=== PATIENT | male | born 1995 | race Caucasian/White ===

== ENCOUNTER → 2018-05-28 16:36 | Outpatient (CLI) | payer OTHER, SELFPAY ==
--- NOTE | 2018-05-28 16:43 | XR_ITS ---
EXAM: XR lumbar spine min 4V HISTORY: ITS.REASON: MID TO LOW BACK PAIN ORDERING PHYSICIAN: Elizabeth Kirby PATIENT AGE: 22 years COMPARISON: None FINDINGS: Normal alignment. No fracture or dislocation. No lytic or blastic change. No significant degenerative change. The disc spaces are preserved. There is no pars defect noted. IMPRESSION: No acute finding
--- NOTE | 2018-05-28 16:44 | XR_ITS ---
EXAM: XR thoracic spine 2V HISTORY: ITS.REASON: MID TO LOW BACK PAIN Comparison: None FINDINGS: Normal alignment. No fracture or dislocation. No lytic or blastic change. No significant degenerative change. The disc spaces are preserved. IMPRESSION: No acute finding
== END ==
PROVIDERS: PCP Nurse Practitioner Family; Visit Provider Nurse Practitioner Family
DX: M54.6 Pain in thoracic spine (principal); M54.5 Low back pain
CPT/HCPCS: 72070; 72110

== ENCOUNTER → 2020-06-10 15:14 | Outpatient (CLI) | payer OTHER, SELFPAY | PROVIDERS: Visit Provider Internal Medicine Adolescent Medicine | DX: R35.0 Frequency of micturition (principal) | CPT/HCPCS: 87086 ==

== ENCOUNTER → 2020-07-06 08:47 | Outpatient (CLI) | payer OTHER, SELFPAY ==
--- NOTE | 2020-07-06 08:50 | CT_ITS ---
PROCEDURE: CT ABDOMEN PELVIS W CON CLINICAL INDICATION: INGUINAL HERNIA OF L SIDE W/O OBSTRUCTION OR GANGRENE Left-sided inguinal pain and swelling COMPARISON: No exams were available for comparison TECHNIQUE: IV Contrast: 75ML OPTIRAY 350 Oral Contrast None Axial images obtained with sagittal and coronal reformats. All CT scans at the facility use one or more dose reduction, viz: automated exposure control, ma/kV adjustment per patient size (including targeted exams where dose is matched to indication, i.e. head), or iterative reconstruction technique. FINDINGS: LOWER THORAX: There is bilateral gynecomastia. ABDOMEN & PELVIS: The liver, gallbladder, spleen, adrenal glands, pancreas, and kidneys have an unremarkable appearance. No evidence of appendicitis. No intestinal obstruction or free air. There is a small left inguinal hernia which contains fat. This does not extend very far into the inguinal canal below the level of the symphysis pubis but is only in the superior aspect of the inguinal canal. There is some minimal stranding of the fat in this area which is nonspecific and could be due to some underlying inflammation. There are few small nodes in the inguinal region on both sides. No dominant adenopathy is evident. No acute bony findings. A small sclerotic focus is present in the proximal aspect of the right femur and may be due to small bone island.. IMPRESSION: 1. No acute abdominal or pelvic findings. 2. Small left inguinal hernia containing fat with some minimal stranding of the fat in the inguinal area which could be due to prior or current inflammation. 3. There are few small bilateral inguinal lymph nodes without dominant adenopathy. Dictated by: Kwasi Godwin MD 07/07/2020 11:48 Kwasi Godwin MD in [place] 07/07/2020 11:48
== END ==
PROVIDERS: PCP Internal Medicine Adolescent Medicine; Visit Provider Nurse Practitioner Family
DX: R10.32 Left lower quadrant pain (principal); K40.90 Unilateral inguinal hernia, without obstruction or gangrene, not specified as recurrent
CPT/HCPCS: 74177; Q9967

== ENCOUNTER → 2020-09-16 15:35 | Outpatient (CLI) | payer OTHER, SELFPAY ==
[2020-09-16 15:37] LABS: Microscopic, Urine URINE MICROSCOPIC (MICROSCOPIC)
[2020-09-16 16:23] LABS: Basophils # 0.1 K/mm3 (0-0.2); Basophils % 0.8 % (0.1-2.0); Eosinophils # 0.1 K/mm3 (0.0-0.4); Eosinophils % 0.7 % (0.1-12.0); Hematocrit 45.9 % (42.0-52.0); Hemoglobin 15.1 g/dL (14.1-18.0); Lymphocytes # 2.9 K/mm3 (0.7-4.5); Lymphocytes % 36.8 % (10-50); Mean Corpuscular HGB Conc 32.9 g/dL (31.8-35.4); Mean Corpuscular Hemoglobin 30.2 pg (27.0-31.2); Mean Corpuscular Volume 91.7 fl (80-94); Mean Platelet Volume 7.7 fl (7.4-10.4); Monocytes # 0.4 K/mm3 (0.1-1.0); Monocytes % 4.5 % (1.7-9.3); Neutrophils # 4.5 K/mm3 (1.8-7.8); Neutrophils % 57.2 % (37.0-80.0); Platelet Count 250 K/mm3 (142-424); Red Blood Count 5.01 M/mm3 (4.60-6.20); Red Cell Distribution Width 12.5 % (11.5-17.5); White Blood Count 7.8 K/mm3 (4.8-10.8)
[2020-09-16 16:35] LABS: Appearance,Urine CLEAR (Clear); Bilirubin,Urine Negative (Negative); Blood, Urine Negative (Negative); Color,Urine YELLOW (Yellow); Glucose,Urine (UA) Negative (Negative); Ketones,Urine Negative (Negative); Leukocyte Esterase,Urine Negative (Negative); Nitrate,Urine Negative (Negative); PH,Urine 7.5 (5.0-8.5); Protein,Urine Negative (Negative)
[2020-09-16 17:06] LABS: WBC,Urine Occasional #/hpf (0-3)
[2020-09-16 18:05] LABS: Anion Gap 13.3 mEq/L (5-15); Blood Urea Nitrogen 20 mg/dl (9-20); Calcium 9.5 mg/dl (8.4-10.2); Carbon Dioxide 29 mmol/L (22.0-30.0); Chloride 102 mmol/L (98-107); Estimated Glomerular Filt Rate 92 ml/min (>60); GFR (African American) 111 ML/MIN (>60); Glucose 71 mg/dl (74-100); Potassium 4.3 mmoL/L (3.5-5.1); Sodium 140 mmol/L (136-145)
[2020-09-16 20:05] LABS: Coronavirus 19 IgG Antibody Negative (Negative); Coronavirus 19 IgM Antibody Negative (Negative)
== END ==
PROVIDERS: Visit Provider Surgery
DX: Z01.818 Encounter for other preprocedural examination (principal); K40.90 Unilateral inguinal hernia, without obstruction or gangrene, not specified as recurrent
CPT/HCPCS: 36415; 80048; 81001; 85025; 86328

== ENCOUNTER 2020-09-18 06:14 | Day surgery (SDC) | payer OTHER, SELFPAY ==
[2020-09-15 11:15] VITALS: BMI 24.3
[2020-09-18] VITALS (13 sets, daily range): BP systolic 118–144; BP diastolic 62–84; PULSE 82–108; RESP 13–18; TEMP 36.2–43; O2SAT 96–100
--- NOTE | 2020-09-18 07:33 | P.PN_ITS ---
[facility] Anesthesia Checklist - Patient Identification Patient Identification: Arm Band - Structural Data Admitted From: Home Planned Operative Procedure/s: Open Left Inguinal Hernia Repair Consent for Planned Operative Procedure(s) Verified: Yes Verified Documents: Surgical Consent, History and Physical - NPO Status Verified Time NPO: 00:00 - Additional verifications Anesthesia Reactions: No Hx Blood Transfusions: No Blood Transfusion Reaction: No - Airway Assessment C-Spine Mobility Assessed: Yes (mp2) TMJ Mobility Assessed: Yes Dentition: Good Dentition - Neurological Assessment Level of Consciousness: Awake, Alert - Anesthesia Plan Anesthesia Risk discussed: Yes Anesthesia Plan: Verified ASA Class: I Anesthesia Type: General [facility] History I have reviewed the patient's past medical history: Yes Medical History: Denies:: Cancer, Diabetes Mellitus Type 1, Diabetes Mellitus Type 2, Internal Pacemaker, MRSA, Seizures *Have you ever received a pneumonia vaccine?: No *Have you received a flu vaccine this season?: No Other Medical History: Denies: Blood Transfusion Reaction Anesthesia experience/problems:: nac Laterality Cases: Left: Arthroscopy Knee Other Surgeries: No: Pacemaker Amputation: No Fractures: No - *Social History Last grade of school completed: Some college Smoking Status: Current some day smoker Tobacco Type: cigarettes # Packs/Day (cigarettes): 1 Alcohol Intake: current Alcohol Intake Frequency:: a few times a week Substance Use Type: denies use *Occupational Status:: employed Housing: house Household Members: spouse *Travel in the last 8 weeks: None Family Hx:: No significant family history
[2020-09-18 07:59] LABS: Microscopic,Cath URINE MICROSCOPIC (MICROSCOPIC)
[2020-09-18 08:00] LABS: Appearance,Urine/Cath CLEAR (Clear); Bilirubin,Cath Negative (Negative); Blood, Urine/Cath Negative (Negative); Color,Urine/Cath YELLOW (Yellow); Glucose,Urine/Cath (UA) Negative (Negative); Ketones,Urine/Cath Negative (Negative); Leukocyte Esterase,Cath Negative (Negative); Nitrate,Cath Negative (Negative); Protein,Urine/Cath Negative (Negative); Specific Gravity, Urine/Cath >= 1.030 (1.005-1.030)
--- NOTE | 2020-09-18 08:28 | HMH.OPNOTE ---
Date of procedure: 09/18/20 Pre-op Diagnosis:: Left inguinal hernia Post-op Diagnosis:: Same Procedure performed:: Open left inguinal hernia repair Surgeon:: Jaguar Leavitt MD Insurance Specialist(s):: [employer] APPRENTICE:: Burton Baron Anesthesia: LMA Estimated blood loss (mL): 15 Operative findings:: Fairly large indirect defect Small direct defect Operative note:: After informed consent was obtained the patient was taken to the operating room and placed in the supine position. General anesthesia was induced and his abdomen/groin/scrotum was prepped and draped in a sterile fashion. After infiltration with local anesthetic an oblique left groin incision was made. A combination of sharp dissection with scalpel and electrocautery was utilized to transect through Lesli's fascia to the level of the external aponeurosis. The external aponeurosis was sharply opened to the level of the external ring. The contents of the canal were carefully elevated. A cord lipoma was resected with a combination of sharp dissection, blunt dissection, and electrocautery. Evaluation did reveal a small to moderate direct defect and a fairly large indirect defect. The hernia sac was carefully elevated. The hernia sac was very thin. Careful dissection with Metzenbaum scissors, electrocautery, and blunt dissection was utilized to carefully separate the skin-walled sac from surrounding tissue. The sac was then inverted and placement of an extra-large PerFix plug was completed. The plug was secured with interrupted 0 Ethibond. The overlay PerFix mesh was then secured to the shelving edge inferiorly and fascial margin superiorly with interrupted Ethibond. The external aponeurosis was reapproximated with a running Vicryl. Lesli's fascia was reapproximated in a similar manner. Skin was closed with 4-0 Monocryl in a running subcuticular fashion. Sterile dressings were applied. Patient was transferred to recovery in stable condition after removal of his laryngeal mask airway. Condition: stable Disposition: PACU Specimens:: None Complications:: No immediate
[2020-09-18 08:33] LABS: Squamous Epithelial Ur./Cath Occasional #/hpf (0-5); WBC,Urine/Cath Occasional #/hpf (0-3)
[2020-09-18 08:34] LABS: Bacteria,Urine/Cath TRACE /lpf
--- NOTE | 2020-09-18 08:36 | P.PN_ITS ---
[facility] Anesthesia Record Part I Intake, IV Amount: 1,300 Estimated blood loss (mL): 10 Urine output (mL): 100 Blood Pressure: 144/84 SaO2: 98 Pulse Rate: 97 Respiratory Rate: 16 Temperature: 97.6 F Patient is:: Drowsy, Stable Stable to PACU at:: 08:30
--- NOTE | 2020-09-18 18:10 | P.PN_ITS ---
[facility] Anesthesia Record Part II Discharge Time: 09:11 Destination: Surgical Day Care (OP Surgery) PACU nurse assessment reviewed?: Yes Patient Condition:: Good Anesthesia Complications:: None Swallowing reflex intact?: Yes Cyanosis?: No Blood Pressure: 133/75 Pulse Rate: 108 Temperature: 97.5 F Mental Status: Alert & Oriented Pain level:: 5 Nausea and/or vomitting:: None Intake, IV Amount: 0
== END 2020-09-18 09:44 | disposition home or self-care (01) ==
LOC: OR 06:16
PROVIDERS: PCP Internal Medicine Adolescent Medicine; Visit Provider Surgery
PROC: (CPT 49505; principal; 2020-09-18 07:30)
DX: K40.90 Unilateral inguinal hernia, without obstruction or gangrene, not specified as recurrent (principal)
CPT/HCPCS: 49505; 81001; 96374; J2405; J2710

== ENCOUNTER 2021-04-17 03:01 | Emergency (ER) | payer OTHER, SELFPAY ==
[2021-04-17 03:18] VITALS: RESP 15; O2SAT 98; BMI 23.8
--- NOTE | 2021-04-17 03:31 | CT_ITS ---
PROCEDURE INFORMATION: Exam: CT Abdomen And Pelvis With Contrast Exam date and time: 04/17/2021 3:31 AM Age: 25 years old Clinical indication: Nausea and vomiting and other: Diarrhea; Prior surgery; Surgery date: 6+ months; Patient HX: N/v/d since 2229, HX of hernia SX; Additional info: Vomiting and nausea, diarhhea since 2229 TECHNIQUE: Imaging protocol: Computed tomography of the abdomen and pelvis with contrast. Radiation optimization: All CT scans at this facility use at least one of these dose optimization techniques: automated exposure control; mA and/or kV adjustment per patient size (includes targeted exams where dose is matched to clinical indication); or iterative reconstruction. Contrast material: ISOVUE; Contrast volume: 75 ml; Contrast route: IV; COMPARISON: CT ABDOMEN PELVIS W CON 07/06/2020 8:51 AM FINDINGS: Liver: Normal. No mass. Gallbladder and bile ducts: Normal. No calcified stones. No ductal dilation. Pancreas: Normal. No ductal dilation. Spleen: Normal. No splenomegaly. Adrenal glands: Normal. No mass. Kidneys and ureters: Normal. No hydronephrosis. Stomach and bowel: Unremarkable. No obstruction. No mucosal thickening. Appendix: No evidence of appendicitis. Intraperitoneal space: Unremarkable. No free air. No significant fluid collection. Vasculature: Unremarkable. No abdominal aortic aneurysm. Lymph nodes: Unremarkable. No enlarged lymph nodes. Urinary bladder: Unremarkable as visualized. Reproductive: Unremarkable as visualized. Bones/joints: Unremarkable. No acute fracture. Soft tissues: Postsurgical changes are seen in the right inguinal region consistent with hernia repair, small amount of adjacent benign-appearing fluid is noted. IMPRESSION: 1. No acute process or mass to explain the patient's nausea and vomiting. 2. Postsurgical changes in the left inguinal region consistent with prior hernia repair.
[2021-04-17 03:41] LABS: Adenovirus F 40/41, stool Not Detected (NotDetected); Astrovirus Not Detected (NotDetected); Campylobacter Not Detected (NotDetected); Clostridium Difficile A/B, PCR Not Detected (NotDetected); Cryptosporidium Not Detected (NotDetected); Cyclospora Cayetanesis Not Detected (NotDetected); Entamoeba histolytica Not Detected (NotDetected); Enteroaggregative E coli Not Detected (NotDetected); Enteropathogenic E coli Not Detected (NotDetected); Enterotoxigenic E coli Not Detected (NotDetected); Giardia lamblia Not Detected (NotDetected); Plesimonas Shigalloides, PCR Not Detected (NotDetected); Rotavirus A Not Detected (NotDetected); Salmonella, PCR Not Detected (NotDetected); Sapovirus Not Detected (NotDetected); Shiga-like toxin E coli Not Detected (NotDetected); Shigella Enterovasive E coli Not Detected (NotDetected); Vibrio Cholerae Not Detected (NotDetected); Vibrio, PCR Not Detected (NotDetected); Yersinia Entercolitica, PCR Not Detected (NotDetected)
[2021-04-17 03:41] LABS: Microscopic, Urine URINE MICROSCOPIC (MICROSCOPIC)
[2021-04-17 03:43] LABS: Appearance,Urine TURBID (Clear); Basophils # 0.1 K/mm3 (0-0.2); Basophils % 0.4 % (0.1-2.0); Blood, Urine Negative (Negative); Color,Urine DK YELLOW (Yellow); Eosinophils # 0.3 K/mm3 (0.0-0.4); Eosinophils % 1.9 % (0.1-12.0); Glucose,Urine (UA) Negative (Negative); Hematocrit 45.6 % (42.0-52.0); Hemoglobin 15.8 g/dL (14.1-18.0); Ketones,Urine 1+ (Negative); Leukocyte Esterase,Urine Negative (Negative); Lymphocytes # 0.6 K/mm3 (0.7-4.5); Lymphocytes % 3.4 % (10-50); Mean Corpuscular HGB Conc 34.8 g/dL (31.8-35.4); Mean Corpuscular Hemoglobin 30.6 pg (27.0-31.2); Mean Corpuscular Volume 88.1 fl (80-94); Mean Platelet Volume 7.8 fl (7.4-10.4); Monocytes # 0.4 K/mm3 (0.1-1.0); Monocytes % 2.2 % (1.7-9.3); Neutrophils # 16.5 K/mm3 (1.8-7.8); Neutrophils % 92.2 % (37.0-80.0); Nitrate,Urine POSITIVE (Negative); PH,Urine 5.5 (5.0-8.5); Platelet Count 262 K/mm3 (142-424); Protein,Urine TRACE (Negative); Red Blood Count 5.17 M/mm3 (4.60-6.20); Red Cell Distribution Width 13.3 % (11.5-17.5); Specific Gravity, Urine >= 1.030 (1.005-1.030); White Blood Count 17.9 K/mm3 (4.8-10.8)
[2021-04-17 03:47] LABS: Bilirubin,Urine Negative (Negative); MANUAL DIFFERENTIAL MANUAL DIFFERENTIAL (MANUAL DIFF)
[2021-04-17 03:48] LABS: Alanine Aminotransferase 28 U/L (12-78); Albumin Level 5.2 g/dl (3.5-5.0); Albumin/Globulin Ratio 1.6 (1.1-1.8); Alkaline Phosphatase 79 U/L (38-126); Amylase 53 U/L (30-110); Anion Gap 16.2 mEq/L (5-15); Aspartate Amino Transferase 33 U/L (17-59); Bacteria,Urine 4+ /lpf; Bilirubin,Total 1.3 mg/dl (0.2-1.3); Blood Urea Nitrogen 20 mg/dl (9-20); Calcium 9.5 mg/dl (8.4-10.2); Carbon Dioxide 28 mmol/L (22.0-30.0); Chloride 102 mmol/L (98-107); Creatinine Clearance Estimated 92 mL/min (50-200); Estimated Glomerular Filt Rate 74 ml/min (>60); GFR (African American) 89 ML/MIN (>60); Globulin 3.3 g/dL (1.3-3.2); Glucose 125 mg/dl (74-100); Lipase 29 U/L (23-300); Potassium 4.2 mmoL/L (3.5-5.1); Sodium 142 mmol/L (136-145); Total Protein,Serum 8.5 g/dl (6.3-8.2)
--- NOTE | 2021-04-17 03:48 | PC.NURSE ---
UP TO CT.
[2021-04-17 04:00] VITALS: BP 146/76; PULSE 105; O2SAT 97
[2021-04-17 04:08] LABS: Lymphocytes % 4 % (10-50); Monocytes % 1 % (2-9); Neutrophils % 94 % (42-76); Platelet Estimate Normal; Total Cells Counted 100
[2021-04-17 04:09] LABS: Stomatocytes 1+
[2021-04-17 04:23] LABS: Lactic Acid 0.9 mmol/L (0.7-2.1)
[2021-04-17 05:00] VITALS: BP 121/62; PULSE 104; RESP 16; O2SAT 100
[2021-04-17 05:11] LABS: Norovirus Detected (NotDetected)
--- NOTE | 2021-04-17 05:20 | HMH.EDNVD ---
ED Disposition Clinical Impression: Norovirus GI and GII detected Disposition: Home, Self-Care Condition on Discharge: Good Instructions: DI for Diarrhea and Traveler's Diarrhea -- Adult Additional Instructions: fluids and see pcp for follow up Referrals: Bud Mcqueen MD [Primary Care Provider] - - Critical Care Critical Care Time: No Attestation: On 04/17/21, the high probability of a clinically significant, sudden or life threatening deterioration of the following system(s) required my full and direct attention, intervention and personal management. The time I documented below is in addition to time spent performing reported procedures but includes the following listed in this critical care notation. Medical Decision Making - Medical Records Medical records reviewed: Yes: I reviewed the patient's medical records. - Severo Inquiry Pt receiving controlled substance: No Vital Signs: 04/17/21 03:18 Respiratory Rate 15 02 Sat by Pulse Oximetry 98 Oxygen Delivery Method Room Air - Lab Data Lab results reviewed: Yes: I reviewed the patient's lab results. Lab Results 04/17/21 03:25: Urine Color Dk yellow, Urine Appearance Turbid, Urine pH 5.5, Ur Specific [place] >= 1.030, Urine Protein Trace, Urine Glucose (UA) Negative, Urine Ketones 1+, Urine Blood Negative, Urine Nitrate Positive, Urine Bilirubin Negative, Urine Urobilinogen 1.0, Ur Leukocyte Esterase Negative, Urine Bacteria 4+ 04/17/21 03:25: WBC 17.9 H, RBC 5.17, Hgb 15.8, Hct 45.6, MCV 88.1, MCH 30.6, MCHC 34.8, RDW 13.3, Plt Count 262, MPV 7.8, Neut % (Auto) 92.2 H, Lymph % (Auto) 3.4 L, [place] % (Auto) 2.2, Eos % (Auto) 1.9, Baso % (Auto) 0.4, Neut # (Auto) 16.5 H, Lymph # (Auto) 0.6 L, [place] # (Auto) 0.4, Eos # (Auto) 0.3, Baso # (Auto) 0.1, Total Counted 100, Neutrophils % (Manual) 94 H, Lymphocytes % (Manual) 4 L, Atypical Lymphs % 1.0, Monocytes % (Manual) 1 L, Platelet Estimate Normal, Stomatocytes 1+ 04/17/21 03:25: Sodium 142, Potassium 4.2, Chloride 102, Carbon Dioxide 28, Anion Gap 16.2 H, BUN 20, Creatinine 1.20, Estimated Creat Clear 92, Estimated GFR 74, Est GFR ( Amer) 89, Glucose 125 H, Calcium 9.5, Total Bilirubin 1.3, AST 33, ALT 28, Alkaline Phosphatase 79, Total Protein 8.5 H, Albumin 5.2 H, Globulin 3.3 H, Albumin/Globulin Ratio 1.6, Amylase 53, Lipase 29 04/17/21 03:25: Procalcitonin 0.150 04/17/21 03:27: Stl Aeromonas (PCR) Not detected, Stl C. cayetanensis PCR Not detected, Stool Rotavirus (PCR) Not detected, Stl Adenov F 40/41 PCR Not detected, Stool Astrovirus (PCR) Not detected, Stool Campylobacter PCR Not detected, Stl C.difficile Tox PCR Not detected, Stool Cryptosporidium PCR Not detected, Stl E.coli Shiga Tox PCR Not detected, Stool E coli O157 PCR Not detected, Stl Enterotoxigenic E PCR Not detected, Stool EPEC (PCR) Not detected, Stool EAEC (PCR) Not detected, Stl E. histolytica PCR Not detected, Stool Giardia Lamblia PCR Not detected, Stool Salmonella PCR Not detected, Stool Sapovirus (PCR) Not detected, Stl P. shigelloides PCR Not detected, Stl Shigella/EIEC PCR Not detected, St Y.enterocolitica PCR Not detected, Stool Vibrio (PCR) Not detected, Stl Vibrio cholerae PCR Not detected, Stl Norovirus GI/GII PCR Detected A 04/17/21 04:05: Lactate 0.9 Result diagrams: 04/17/21 03:25 04/17/21 03:25 Orders (Tests/Meds): ED MEDICATIONS Generic Name Dose Route Start Last Admin Trade Name Freq PRN Reason Stop Dose Admin Sodium Chloride 1,000 mls @ 999 mls/hr 04/17/21 03:30 04/17/21 03:33 Sod Chlor 0.9% 1000ml Bag IV 04/17/21 04:30 999 mls/hr .Q1H1M HEMAL Administration Lactated Ringer's 1,000 mls @ 999 mls/hr 04/17/21 05:30 04/17/21 05:24 Lactated Ringer's 1000 Ml Bag IV 04/17/21 06:30 999 mls/hr .Q1H1M HEMAL Administration Discontinued Medications Generic Name Dose Route Start Last Admin Trade Name Freq PRN Reason Stop Dose Admin Iopamidol 75 ml 04/17/21 04:00 04/17/21 04:01 Iopamidol-370 (76%
[2021-04-17 05:44] VITALS: BP 107/59; PULSE 97; RESP 16; TEMP 36.7; O2SAT 100
== END 2021-04-17 05:51 | disposition home or self-care (01) ==
PROVIDERS: Emergency Provider Emergency Medicine; PCP Internal Medicine Adolescent Medicine
DX: A08.11 Acute gastroenteropathy due to Norwalk agent (principal); F17.210 Nicotine dependence, cigarettes, uncomplicated
CPT/HCPCS: 74177; 80053; 81001; 82150; 83605; 83690; 84145; 85007; 85025; 87040; 87086; 87506; 96365; 96366; 96375; 99284; J2405; Q9967

== ENCOUNTER → 2021-11-30 16:52 | Outpatient (CLI) | payer OTHER, SELFPAY ==
--- NOTE | 2021-11-30 16:59 | XR_ITS ---
PROCEDURE INFORMATION: Exam: XR Right Ankle Exam date and time: 11/30/2021 4:59 PM Age: 25 years old Clinical indication: Pain; Ankle; Right; Additional info: Acute RT ankle pain TECHNIQUE: Imaging protocol: XR Right ankle. Views: 3 or more views. COMPARISON: No relevant prior studies available. FINDINGS: Bones/joints: Osseous anatomic alignment is well preserved. No acutely displaced fracture or dislocation. Joint spaces are well preserved. Soft tissues: No significant soft tissue swelling. IMPRESSION: No acute findings.
== END ==
PROVIDERS: PCP Internal Medicine Adolescent Medicine; Visit Provider Nurse Practitioner Family
DX: M25.571 Pain in right ankle and joints of right foot (principal)
CPT/HCPCS: 73610

== ENCOUNTER 2025-01-01 12:37 | Outpatient (CLI) | payer BC, SELFPAY ==
[2025-01-01 13:55] LABS: Chloride 103 mmol/L (98-107); Potassium 3.9 mmoL/L (3.5-5.1); Sodium 140 mmol/L (136-145)
[2025-01-01 13:57] LABS: Blood Urea Nitrogen 15 mg/dl (9-20); Estimated Glomerular Filt Rate 100 ml/min (>60); GFR (African American) 121 ML/MIN (>60)
[2025-01-01 13:58] LABS: Alanine Aminotransferase 29 U/L (12-78); Albumin/Globulin Ratio 2.2 (1.1-1.8); Alkaline Phosphatase 66 U/L (38-126); Anion Gap 11.9 mEq/L (5-15); Aspartate Amino Transferase 31 U/L (17-59); Bilirubin,Total 0.6 mg/dl (0.2-1.3); Calcium 9.3 mg/dl (8.4-10.2); Carbon Dioxide 29 mmol/L (22.0-30.0); Chol/HDL Ratio 4.1 (1-3.5); Cholesterol 180 mg/dl (140-200); Globulin 2.3 g/dL (1.3-3.2); Glucose 80 mg/dl (74-100); HDL Cholesterol 44 mg/dl (40-60); Total Protein,Serum 7.3 g/dl (6.3-8.2); Triglycerides 94 mg/dl (30-150); VLDL Cholesterol 19 mg/dL (0-40)
[2025-01-01 14:12] LABS: Direct LDL Cholesterol 95.46 mg/dL (100-129)
[2025-01-07 15:21] LABS: Miscellaneous Test SCANNED IMAGE
== END 2025-01-01 23:59 | disposition home or self-care (01) ==
LOC: LAB 12:40
PROVIDERS: PCP Nurse Practitioner Family; Visit Provider Nurse Practitioner Family
DX: Z00.00 Encounter for general adult medical examination without abnormal findings (principal)
CPT/HCPCS: 36415; 80053; 80061; 87529